=== PATIENT | female | born 1995 | race African-American/Black ===

== ENCOUNTER 2024-07-17 14:54 | Emergency (ER) | payer BC ==
[~2024-07-17] VITALS: Ht 154.9 cm; Wt 68.0 kg
[2024-07-17 15:04] VITALS: TEMP 98.6
[2024-07-17 16:09] LABS: BASOPHILS # (AUTO) 0.1 K/uL (0.0-0.2); BASOPHILS % (AUTO) 0.6 % (0.0-2.0); EOSINOPHILS # (AUTO) 0.1 K/uL (0.0-0.7); EOSINOPHILS % (AUTO) 0.8 % (0.0-6.0); HEMATOCRIT 43 % (33-45); HEMOGLOBIN 14.2 g/dL (11.5-14.8); LYMPHOCYTES # (AUTO) 1.5 K/uL (0.8-4.8); MEAN CORPUSCULAR HEMOGLOBIN 28 PG (26.0-33.0); MEAN CORPUSCULAR HGB CONC 33 g/dl (31.0-36.0); MEAN CORPUSCULAR VOLUME 85 fL (82-100); MONOCYTES # (AUTO) 0.9 K/uL (0.1-1.30); MONOCYTES % (AUTO) 9.5 % (2.0-12.0); NEUTROPHILS # (AUTO) 6.7 K/uL (1.8-8.9); NEUTROPHILS % (AUTO) 73.1 % (43.0-81.0); PLATELET COUNT (AUTO) 316 K/uL (150-450); RED CELL DISTRIBUTION WIDTH 13.6 % (11.5-15.0); WHITE BLOOD COUNT (AUTO) 9.2 K/uL (4.3-11.0)
[2024-07-17 16:37] LABS: PREGNANCY TEST URINE QUAL NEGATIVE (NEGATIVE)
[2024-07-17 16:52] LABS: APPEARANCE,URINE CLEAR (CLEAR); BILIRUBIN,URINE NEGATIVE (NEGATIVE); COLOR,URINE YELLOW (YELLOW); KETONES,URINE NEGATIVE (NEGATIVE); LEUKOCYTE ESTERASE ,URINE NEGATIVE (NEGATIVE); NITRITE, URINE NEGATIVE (NEGATIVE); PH,URINE 7.5 (5.0-8.0); PROTEIN,URINE NEGATIVE (NEGATIVE); UGLUCOSE NEGATIVE (NEGATIVE)
[2024-07-17 17:14] LABS: BLOOD, URINE TRACE-INTACT Ery/uL (NEGATIVE)
[2024-07-17 17:16] LABS: ADD URINE CULTURE YES; BACTERIA,URINE Moderate /HPF (None Seen); WBC,URINE 0-2 /HPF (0-3)
[2024-07-17 17:17] LABS: SQUAMOUS EPITHELIAL CELL,UR Moderate /HPF (None Seen)
[2024-07-17 17:19] LABS: MUCUS,URINE Moderate /LPF (None Seen)
[2024-07-17 17:27] LABS: ALBUMIN 3.7 g/dL (3.4-5.0); BILIRUBIN,TOTAL 0.2 mg/dL (0.2-1.0); CALCIUM, SERUM 9.3 mg/dL (8.5-10.1); CREATININE 0.8 mg/dL (0.6-1.3); POTASSIUM 4.4 mmol/L (3.5-5.1)
[2024-07-17] MEDS ORDERED: IOHEXOL-300 100 ML VIAL IV ONE (18:37)
[2024-07-17] MEDS ORDERED: IV NS 0.9% 250 ML IV ONE (18:38)
[2024-07-17] MEDS ORDERED: IBUP-1490 PO (19:39)
[2024-07-17] MEDS ORDERED: IBUPROFEN 600 MG TABLET ONE (20:01)
[2024-07-17 20:18] VITALS: BP 115/70; O2SAT 100
[2024-07-17] MEDS ORDERED: IBUPROFEN 600 MG TABLET PO ONE (20:30)
== END 2024-07-17 20:17 | disposition home or self-care (01) ==
LOC: ER 15:02
DX: R10.32 Left lower quadrant pain (principal); R10.2 Pelvic and perineal pain
CPT/HCPCS: 99285; 74177; 76856; 85025; 87086; 84703; 81001; 36415; 80053; J7050; Q9967